=== PATIENT | male | born 1995 | race Caucasian/White ===

== ENCOUNTER 2017-07-03 15:17 | Emergency (ER) | payer BC, OTHER ==
[~2017-07-03 15:17] MED LIST: Sodium Chloride Irrig Solution 250 ML BOT ONE
[2017-07-03] MEDS ORDERED: Lidocaine 1% 20 ML MDV ONE (15:35)
[2017-07-03] MEDS ORDERED: Ondansetron ODT 4 MG TAB ONE (15:35)
[2017-07-03] MEDS ORDERED: Adacel (T-DAP) 0.5 ML VIAL ONE (16:02)
[2017-07-03] MEDS ORDERED: Bacitracin Zinc 1 Packet ONE (16:15)
== END 2017-07-03 16:47 | disposition home or self-care (01) ==
LOC: MADERS 15:17
DX: S61.210A Laceration without foreign body of right index finger without damage to nail, initial encounter (principal); S61.212A Laceration without foreign body of right middle finger without damage to nail, initial encounter; F31.9 Bipolar disorder, unspecified; W26.9XXA Contact with unspecified sharp object(s), initial encounter
CPT/HCPCS: 12002; 90471; 90715; J2001; Q0162